=== PATIENT | female | born 1945 | race Caucasian/White ===

== ENCOUNTER 2020-11-06 21:39 | Emergency (ER) | payer MEDICARE ==
[~2020-11-06] VITALS: Ht 157.5 cm; Wt 99.0 kg
[2020-11-06 21:49] VITALS: BP 140/80
[2020-11-06] MEDS ORDERED: LISI1TAB23 PO (22:02)
[2020-11-06] MEDS ORDERED: LEVO100T5 PO (22:02)
[2020-11-06] MEDS ORDERED: LISI-170 PO (22:02)
== END 2020-11-06 22:46 | disposition home or self-care (01) ==
LOC: ED 22:00
DX: J01.00 Acute maxillary sinusitis, unspecified (principal); I10 Essential (primary) hypertension
CPT/HCPCS: 99283